=== PATIENT | male | born 1955 | race Caucasian/White ===

== ENCOUNTER 2021-04-27 20:41 | Inpatient (IN) | payer OTHER ==
[~2021-04-27 20:41] MED LIST: Iopamidol 370 76% 100 ML VIAL ONE
[2021-04-27] MEDS ORDERED: Midazolam HCl 2 mg/2 ml Vial ONE (20:53)
[2021-04-27] MEDS ORDERED: CEFAZOLIN 1 GM VIAL ONE (20:57)
[2021-04-27] MEDS ORDERED: Boostrix 0.5 ML (Tdap) VIAL ONE (20:57)
[2021-04-27 21:07] LABS: #Basophils 0.1 thou/uL (0.0-0.2); #Eosinphils 0.3 thou/uL (0.0-0.7); #Monocytes 0.7 thou/uL (0.11-0.59); #Neutrophils 5.4 thou/uL (1.40-6.50); %Basophils 0.8 % (0.0-1.0); %Eosinophils 3.4 % (0.0-10.0); %Lymphocytes 31.2 % (21.0-51.0); %Monocytes 7.4 % (0.0-10.0); %Neutrophils 57.2 % (42.0-75.0); Hemoglobin 12.5 g/dL (14.0-18.0); Mean Corpuscular HGB CONC 32.7 g/dL (32.0-36.0); Mean Corpuscular Hemoglobin 31.5 pg (27.0-31.0); Mean Corpuscular Volume 96.2 fL (78.0-98.0); Mean Platelet Volume 7.5 fL (7.4-10.4); Platelet Count 214 thou/uL (130-400); RBC Distribution Width 12.4 % (11.5-14.5); Red Blood Cell (RBC) Count 3.97 mill/uL (4.70-6.10); White Blood Cell (WBC) Count 9.5 thou/uL (4.8-10.8)
[2021-04-27 21:11] LABS: INR-International Normal Ratio 1.2; PTT 33.2 sec (22.9-36.1); Prothrombin Time 15.2 sec (12.0-14.7)
[2021-04-27 21:14] LABS: ALT (SGPT) 24 U/L (8-55); AST (SGOT) 28 U/L (5-34); Albumin 3.2 g/dL (3.4-4.8); Alkaline Phosphatase 72 U/L (40-110); Anion Gap 18 mmol/L (10-20); BUN (Urea Nitrogen) 35 mg/dL (8.4-25.7); Bilirubin, Total 0.2 mg/dL (0.2-1.2); Calc. Creatinine Clearance 0 mL/min (70-130); Calcium 7.7 mg/dL (7.8-10.44); Carbon Dioxide 16 mmol/L (23-31); Chloride 104 mmol/L (98-107); Globulin 2.9 g/dL (2.4-3.5); Protein, Total 6.1 g/dL (5.8-8.1); Sodium 135 mmol/L (136-145)
[2021-04-27] MEDS ORDERED: fentaNYL Citrate/PF 2,000 MCG in Sodium Chloride 0.9% 60 ML IV SCH (21:15)
[2021-04-27] MEDS ORDERED: manNITOL 20% 500 ML ONE (21:15)
[2021-04-27 21:17] LABS: Actual Bicarbonate (HCO3a) 19.5 mEq/L (22-28); Analyzer IN Cardio ER; Base Excess (BEa) -6.3 mEq/L (-2.0 to +3.0); Calcium, Ionized (arterial) 1.05 mmol/L (1.12-1.30); Carboxyhemoglobin (COHb) 0.2 gm% (0.0-3.0); Hemoglobin (Hb) 10.7 g/dL (14.0-18.0); O2 Tension (PaO2), arterial 219.7 mmHg (> 80.0); Potassium - ABG Lab 2.65 mmol/L (3.70-5.30); pH, Arterial 7.31 (7.35-7.45)
[2021-04-27 21:18] LABS: Puncture Site RRA
[2021-04-27 21:19] LABS: Glucose 336 mg/dL (80-115)
[2021-04-27] MEDS ORDERED: ceFAZolin 2 GM/Dextrose 50 ML 2 GM in Premix Bag 1 BAG IVPB SCH (21:30)
[2021-04-27 21:32] LABS: Phosphorus 4.6 mg/dL (2.3-4.7)
[2021-04-27 21:33] LABS: Bilirubin Negative (Negative); Blood, Urine Negative (Negative); Clarity Clear (Clear); Glucose, Urine (Dipstick) >=1000 mg/dL (Negative); Ketone, Urine Negative (Negative); Leukocyte Negative Leu/uL (Negative); Nitrite Negative (Negative); Protein, Urine (Dipstick) 20 mg/dL (Neg-Trace); Specific Gravity, Urine 1.029 (1.002-1.036); Urobilinogen Normal mg/dL (Less than 2)
[2021-04-27 21:34] LABS: Alcohol Less than 10 mg/dL (Less than 10)
[2021-04-27] MEDS ORDERED: Lidocaine 0.5%/Epinephrine 1:200,000 50 ml Vial ONE (21:37)
[2021-04-27] MEDS ORDERED: Phenylephrine 10 MG/ML VIAL ONE (21:37)
[2021-04-27] MEDS ORDERED: Thrombin 5000 UNITS/5 ML VIAL ONE (21:37)
[2021-04-27] MEDS ORDERED: Fentanyl 100 MCG/2 ML VIAL ONE (21:37)
[2021-04-27] MEDS ORDERED: Bacitracin Zinc Ointment 30 gm TUBE ONE (21:37)
[2021-04-27] MEDS ORDERED: Potassium Chloride 20 MEQ/100 ML PREMIX BAG ONE (21:40)
[2021-04-27] MEDS ORDERED: Calcium Chloride 1 GM/10 ML Abboject SYRINGE ONE (21:40)
[2021-04-27 21:41] LABS: Amphetamine Not Detected (NotDetected); Barbiturates Screen Not Detected (NotDetected); Benzodiazepine Screen Not Detected (NotDetected); Cocaine Metabolite Screen Not Detected (NotDetected); Methadone Not Detected (NotDetected); Methamphetamine Not Detected (NotDetected); Opiate Screen Not Detected (NotDetected); Oxycodone Screen Not Detected (NotDetected); Phencyclidine (PCP) Not Detected (NotDetected); THC/Cannabinoid Screen Not Detected (NotDetected); Tricyclic Screen Not Detected (NotDetected)
[2021-04-27] MEDS ORDERED: Norepinephrine 8 MG/0.9% NS 250 ML ONE (21:48)
[2021-04-27] MEDS ORDERED: Rocuronium Bromide 10 MG/ML (10ML VIAL) ONE (21:55)
[2021-04-27] MEDS ORDERED: Vecuronium 10 MG VIAL ONE (21:55)
[2021-04-27] MEDS ORDERED: hydrALAZINE 20 MG/ML VIAL SLOW IVP PRN (22:02)
[2021-04-27] MEDS ORDERED: Ondansetron PF 4 MG/2 ML Vial IVP PRN (22:02)
[2021-04-27] MEDS ORDERED: Dextrose 50% Abboject 50 ML SYRINGE SLOW IVP PRN (22:04)
[2021-04-27] MEDS ORDERED: Xylocaine 1% w/ Epi 1:100K 10 ML VIAL ONE (22:04)
[2021-04-27] MEDS ORDERED: Dextrose 5% in Water 1,000 ML IV PRN (22:04)
[2021-04-27] MEDS ORDERED: Ventilator Sedation Protocol 1 EACH FS SCH (22:15)
[2021-04-27] MEDS ORDERED: Propofol 1,000 MG/100 ML VIAL IV PRN (22:15)
[2021-04-27] MEDS ORDERED: Morphine 4 MG/ML VIAL SLOW IVP PRN (23:59)
[2021-04-27] MEDS ORDERED: Labetalol HCl 100 MG/20 ML VIAL SLOW IVP PRN (23:59)
[2021-04-28] MEDS: Norepinephrine 8 MG/0.9% NS 250 ML IVPB SCH ×2 (00:01→10:27)
[2021-04-28 00:26] LABS: Actual Bicarbonate (HCO3a) 20.3 mEq/L (22-28); CO2 Tension 38.3 mmHg (35.0-45.0); Calcium, Ionized (arterial) 1.14 mmol/L (1.12-1.30); Carboxyhemoglobin (COHb) 0.3 gm% (0.0-3.0); Hemoglobin (Hb) 10.9 g/dL (14.0-18.0); Potassium - ABG Lab 3.17 mmol/L (3.70-5.30); pH, Arterial 7.34 (7.35-7.45)
[2021-04-28 00:29] LABS: ALV-art Gradient 288.925 mmHg (0-20); Puncture Site LINE
[2021-04-28] MEDS ORDERED: Labetalol HCl 100 MG/20 ML VIAL SLOW IVP PRN (00:31)
[2021-04-28] MEDS: Sodium Chloride 0.9% 1,000 ML IV SCH ×4 (01:25→20:05)
[2021-04-28 01:39] LABS: Lactic Acid 1.1 mmol/L (0.5-2.2)
[2021-04-28] MEDS: fentaNYL Citrate/PF 2,000 MCG in Sodium Chloride 0.9% 60 ML IV SCH ×2 (02:30→21:45)
[2021-04-28] MEDS: Potassium Chloride 20 MEQ in Premix Bag 1 BAG IVPB SCH ×4 (02:30→08:21)
[2021-04-28 04:28] LABS: Lactic Acid 1.4 mmol/L (0.5-2.2)
[2021-04-28 04:38] LABS: Anion Gap 17 mmol/L (10-20); BUN (Urea Nitrogen) 32 mg/dL (8.4-25.7); Calc. Creatinine Clearance 65 mL/min (70-130); Carbon Dioxide 19 mmol/L (23-31); Chloride 106 mmol/L (98-107); Glucose 270 mg/dL (80-115); Phosphorus 3.1 mg/dL (2.3-4.7); Potassium 3.7 mmol/L (3.5-5.1); Sodium 138 mmol/L (136-145)
[2021-04-28 05:03] LABS: #Eosinphils 0.1 thou/uL (0.0-0.7); #Monocytes 1.6 thou/uL (0.11-0.59); #Neutrophils 12.5 thou/uL (1.40-6.50); %Basophils 0.1 % (0.0-1.0); %Eosinophils 0.6 % (0.0-10.0); %Lymphocytes 6.6 % (21.0-51.0); %Monocytes 10.3 % (0.0-10.0); %Neutrophils 82.3 % (42.0-75.0); Hemoglobin 10.1 g/dL (14.0-18.0); Mean Corpuscular HGB CONC 34.2 g/dL (32.0-36.0); Mean Corpuscular Volume 93.6 fL (78.0-98.0); Mean Platelet Volume 8.4 fL (7.4-10.4); Platelet Count 208 thou/uL (130-400); RBC Distribution Width 12.4 % (11.5-14.5); Red Blood Cell (RBC) Count 3.17 mill/uL (4.70-6.10); White Blood Cell (WBC) Count 15.2 thou/uL (4.8-10.8)
[2021-04-28] MEDS: Insulin Regular 300 UNITS/3 ML VIAL SC PRN ×4 (05:11→21:07)
[2021-04-28] MEDS: Acetaminophen 500 MG TAB PO SCH ×3 (05:18→12:12)
[2021-04-28] MEDS ORDERED: Sodium Chloride 0.9% 1,000 ML IV SCH (05:45)
[2021-04-28] MEDS ORDERED: Mannitol 12.5 GM/50 ML SLOW IVP SCH (06:00)
[2021-04-28 06:24] LABS: Anion Gap 17 mmol/L (10-20); BUN (Urea Nitrogen) 33 mg/dL (8.4-25.7); Calc. Creatinine Clearance 59 mL/min (70-130); Calcium 7.9 mg/dL (7.8-10.44); Carbon Dioxide 19 mmol/L (23-31); Chloride 107 mmol/L (98-107); Glucose 290 mg/dL (80-115); Potassium 3.9 mmol/L (3.5-5.1); Sodium 139 mmol/L (136-145)
[2021-04-28 07:48] LABS: Actual Bicarbonate (HCO3a) 18.4 mEq/L (22-28); Base Excess (BEa) -4.8 mEq/L (-2.0 to +3.0); CO2 Tension 28.3 mmHg (35.0-45.0); Calcium, Ionized (arterial) 1.12 mmol/L (1.12-1.30); Carboxyhemoglobin (COHb) 0.3 gm% (0.0-3.0); Hemoglobin (Hb) 10.3 g/dL (14.0-18.0); O2 Tension (PaO2), arterial 130.3 mmHg (> 80.0); Potassium - ABG Lab 3.92 mmol/L (3.70-5.30); pH, Arterial 7.43 (7.35-7.45)
[2021-04-28 07:49] LABS: ALV-art Gradient 262.125 mmHg (0-20); Puncture Site Arterial Line
[2021-04-28] MEDS: Senokot S 8.6-50 MG TAB PO SCH ×2 (08:27→20:05)
[2021-04-28] MEDS: Polyethylene Glycol 3350 17 GM Packet PO SCH (08:27)
[2021-04-28] MEDS: ceFAZolin 2 GM/Dextrose 50 ML 2 GM in Premix Bag 1 BAG IVPB SCH ×2 (08:42→17:01)
[2021-04-28] MEDS ORDERED: Lidocaine 1% (PF) 30 ML VIAL ONE (08:51)
[2021-04-28] MEDS ORDERED: Famotidine/PF 20 mg/2ml Vial SLOW IVP SCH (09:00)
[2021-04-28 11:16] LABS: Anion Gap 17 mmol/L (10-20); BUN (Urea Nitrogen) 32 mg/dL (8.4-25.7); Calc. Creatinine Clearance 65 mL/min (70-130); Calcium 7.8 mg/dL (7.8-10.44); Carbon Dioxide 17 mmol/L (23-31); Chloride 109 mmol/L (98-107); Glucose 273 mg/dL (80-115); Potassium 3.6 mmol/L (3.5-5.1); Sodium 139 mmol/L (136-145)
[2021-04-28 11:27] LABS: SARS-CoV-2 PCR by NAA DETECTED (NotDetected)
[2021-04-28 15:25] LABS: SARS-CoV-2 PCR by NAA DETECTED (NotDetected)
[2021-04-28 15:43] LABS: Actual Bicarbonate (HCO3a) 18.2 mEq/L (22-28); Base Excess (BEa) -4.7 mEq/L (-2.0 to +3.0); CO2 Tension 26.5 mmHg (35.0-45.0); Calcium, Ionized (arterial) 1.08 mmol/L (1.12-1.30); Carboxyhemoglobin (COHb) 0.3 gm% (0.0-3.0); Hemoglobin (Hb) 9.8 g/dL (14.0-18.0); O2 Tension (PaO2), arterial 83.4 mmHg (> 80.0); Potassium - ABG Lab 3.53 mmol/L (3.70-5.30); pH, Arterial 7.46 (7.35-7.45)
[2021-04-28 15:44] LABS: Puncture Site Arterial Line
[2021-04-28 15:45] LABS: ALV-art Gradient 239.975 mmHg (0-20)
[2021-04-28] MEDS ORDERED: Acetaminophen 650 MG Suppository PR PRN (15:46)
[2021-04-28] MEDS ORDERED: Calcium Chloride 13.6 MEQ in Sodium Chloride 0.9% 100 ML IVPB SCH (16:45)
[2021-04-28] MEDS: Pantoprazole 40 MG VIAL IVP SCH (20:04)
[2021-04-28] MEDS: Acetaminophen 325 MG TAB PO PRN (20:05)
[2021-04-29] MEDS: ceFAZolin 2 GM/Dextrose 50 ML 2 GM in Premix Bag 1 BAG IVPB SCH ×3 (00:14→16:27)
[2021-04-29] MEDS: Acetaminophen 325 MG TAB PO PRN (00:18)
[2021-04-29] MEDS: Insulin Regular 300 UNITS/3 ML VIAL SC PRN ×6 (00:39→20:59)
[2021-04-29 04:08] LABS: #Lymphocytes 0.7 thou/uL (1.20-3.40); #Neutrophils 12.4 thou/uL (1.40-6.50); %Basophils 0.2 % (0.0-1.0); %Eosinophils 0.1 % (0.0-10.0); %Lymphocytes 5.1 % (21.0-51.0); %Monocytes 7.3 % (0.0-10.0); %Neutrophils 87.3 % (42.0-75.0); Hemoglobin 8.3 g/dL (14.0-18.0); Mean Corpuscular Hemoglobin 32.2 pg (27.0-31.0); Mean Corpuscular Volume 94.7 fL (78.0-98.0); Mean Platelet Volume 7.8 fL (7.4-10.4); Platelet Count 195 thou/uL (130-400); RBC Distribution Width 12.7 % (11.5-14.5); Red Blood Cell (RBC) Count 2.58 mill/uL (4.70-6.10); White Blood Cell (WBC) Count 14.2 thou/uL (4.8-10.8)
[2021-04-29 04:34] LABS: Anion Gap 11 mmol/L (10-20); BUN (Urea Nitrogen) 37 mg/dL (8.4-25.7); Calc. Creatinine Clearance 57 mL/min (70-130); Calcium 8.1 mg/dL (7.8-10.44); Carbon Dioxide 22 mmol/L (23-31); Chloride 112 mmol/L (98-107); Glucose 219 mg/dL (80-115); Phosphorus 3.9 mg/dL (2.3-4.7); Potassium 3.4 mmol/L (3.5-5.1); Sodium 142 mmol/L (136-145)
[2021-04-29] MEDS: Norepinephrine 8 MG/0.9% NS 250 ML IVPB SCH (06:10)
[2021-04-29 08:15] LABS: Actual Bicarbonate (HCO3a) 20.1 mEq/L (22-28); Base Excess (BEa) -5.3 mEq/L (-2.0 to +3.0); CO2 Tension 38.7 mmHg (35.0-45.0); Calcium, Ionized (arterial) 1.17 mmol/L (1.12-1.30); Carboxyhemoglobin (COHb) 0.3 gm% (0.0-3.0); Hemoglobin (Hb) 10.3 g/dL (14.0-18.0); O2 Tension (PaO2), arterial 86.3 mmHg (> 80.0); Potassium - ABG Lab 3.51 mmol/L (3.70-5.30); pH, Arterial 7.33 (7.35-7.45)
[2021-04-29 08:21] LABS: ALV-art Gradient 221.825 mmHg (0-20); Puncture Site Arterial Line
[2021-04-29] MEDS: Pantoprazole 40 MG VIAL IVP SCH ×2 (09:02→20:51)
[2021-04-29] MEDS: Polyethylene Glycol 3350 17 GM Packet PO SCH (09:02)
[2021-04-29] MEDS: Senokot S 8.6-50 MG TAB PO SCH ×2 (09:02→20:50)
[2021-04-29] MEDS: Sodium Chloride 0.9% 1,000 ML IV SCH ×2 (09:02→13:53)
[2021-04-29] MEDS ORDERED: Sodium Chloride 0.9% 500 ML IV SCH (14:30)
[2021-04-29 21:14] VITALS: TEMP 97.2
[2021-04-30] MEDS: ceFAZolin 2 GM/Dextrose 50 ML 2 GM in Premix Bag 1 BAG IVPB SCH (01:11)
[2021-04-30] MEDS: Sodium Chloride 0.9% 1,000 ML IV SCH (05:17)
[2021-04-30] MEDS: fentaNYL Citrate/PF 2,000 MCG in Sodium Chloride 0.9% 60 ML IV SCH (05:46)
[2021-04-30] MEDS ORDERED: Midazolam HCl 2 mg/2 ml Vial ONE (06:00)
[2021-04-30] MEDS ORDERED: Morphine 4 MG/ML VIAL SLOW IVP PRN (06:13)
[2021-04-30] MEDS ORDERED: Midazolam HCl 2 mg/2 ml Vial SLOW IVP SCH (07:15)
[2021-04-30 08:24] VITALS: BP 117/47
== END 2021-04-30 10:01 | disposition hospice, inpatient (51) | DRG 955 ==
LOC: EDBD 20:41 → ERS 20:41 → SDC/OP 22:04 → CCU 23:00
PROVIDERS: ADMIT Surgery; ATTEND Surgery
PROC: 00C40ZZ Extirpation of Matter from Intracranial Subdural Space, Open Approach (ICD-10-PCS; principal; 2021-04-27)
PROC: 5A1945Z Respiratory Ventilation, 24-96 Consecutive Hours (ICD-10-PCS; 2021-04-27)
PROC: 0W9930Z Drainage of Right Pleural Cavity with Drainage Device, Percutaneous Approach (ICD-10-PCS; 2021-04-27)
PROC: 02HV33Z Insertion of Infusion Device into Superior Vena Cava, Percutaneous Approach (ICD-10-PCS; 2021-04-27)
PROC: 0D9670Z Drainage of Stomach with Drainage Device, Via Natural or Artificial Opening (ICD-10-PCS; 2021-04-27)
PROC: 3E043XZ Introduction of Vasopressor into Central Vein, Percutaneous Approach (ICD-10-PCS; 2021-04-27)
PROC: 0W9900Z Drainage of Right Pleural Cavity with Drainage Device, Open Approach (ICD-10-PCS; 2021-04-28)
PROC: 8E0ZXY6 Isolation (ICD-10-PCS; 2021-04-28)
DX: S06.5X6A Traumatic subdural hemorrhage with loss of consciousness greater than 24 hours without return to pre-existing conscious level with patient surviving, initial encounter (principal); S27.2XXA Traumatic hemopneumothorax, initial encounter; R57.8 Other shock; S06.A1XA Traumatic brain compression with herniation, initial encounter; J96.00 Acute respiratory failure, unspecified whether with hypoxia or hypercapnia; U07.1 COVID-19; S22.41XA Multiple fractures of ribs, right side, initial encounter for closed fracture; S12.000A Unspecified displaced fracture of first cervical vertebra, initial encounter for closed fracture; S12.500A Unspecified displaced fracture of sixth cervical vertebra, initial encounter for closed fracture; S22.029A Unspecified fracture of second thoracic vertebra, initial encounter for closed fracture; S22.069A Unspecified fracture of T7-T8 vertebra, initial encounter for closed fracture; N17.9 Acute kidney failure, unspecified; D62 Acute posthemorrhagic anemia; G91.8 Other hydrocephalus; J90 Pleural effusion, not elsewhere classified; Z23 Encounter for immunization; Z66 Do not resuscitate; Z51.5 Encounter for palliative care; S06.6X6A Traumatic subarachnoid hemorrhage with loss of consciousness greater than 24 hours without return to pre-existing conscious level with patient surviving, initial encounter; S06.4X6A Epidural hemorrhage with loss of consciousness greater than 24 hours without return to pre-existing conscious level with patient surviving, initial encounter; S02.11GB Other fracture of occiput, right side, initial encounter for open fracture; R40.2312 Coma scale, best motor response, none, at arrival to emergency department; R40.2112 Coma scale, eyes open, never, at arrival to emergency department; R40.2212 Coma scale, best verbal response, none, at arrival to emergency department; E87.6 Hypokalemia; I10 Essential (primary) hypertension; E11.65 Type 2 diabetes mellitus with hyperglycemia; S06.1X Traumatic cerebral edema; E83.51 Hypocalcemia; R50.9 Fever, unspecified; W17.89XA Other fall from one level to another, initial encounter; Y92.512 Supermarket, store or market as the place of occurrence of the external cause; Y99.0 Civilian activity done for income or pay; Z79.899 Other long term (current) drug therapy
CPT/HCPCS: 36415; 36416; 36600; 70450; 70498; 71045; 71260; 72125; 74018; 74177; 80048; 80053; 80306; 80307; 81003; 82533; 82805; 83605; 83735; 83930; 84100; 85025; 85610; 85730; 86850; 86900; 86901; 90715; 93005; 94003; 94640; C1713; C1789; C9113; G0390; J0690; J1815; J2001; J2250; J2370; J3010; J3480; J3490; J7030; J7050; J7620; J7799; Q9967; S0028; U0003; U0005

== ENCOUNTER 2021-04-30 10:09 | Inpatient (IN) | payer MEDICAID ==
[2021-04-30] MEDS ORDERED: Lorazepam 2 MG/ML VIAL SLOW IVP PRN ×2 (10:30→10:32)
[2021-04-30] MEDS ORDERED: Scopolamine 1.5 mg/72 hour Patch TOP PRN ×2 (10:30)
[2021-04-30] MEDS ORDERED: Acetaminophen 650 MG Suppository PR PRN (10:30)
[2021-04-30] MEDS ORDERED: Acetaminophen 325 MG TAB PO PRN (10:30)
[2021-04-30] MEDS ORDERED: Lorazepam 1 MG TAB PO PRN (10:30)
[2021-04-30] MEDS ORDERED: Hyoscyamine Sulfate SL 0.125 mg Tablet SL PRN (10:30)
[2021-04-30] MEDS ORDERED: Haloperidol Lactate 5 MG/ML VIAL SLOW IVP PRN (10:30)
[2021-04-30] MEDS ORDERED: Morphine 10 MG/0.5 ML ORAL SYRINGE SL PRN (10:30)
[2021-04-30] MEDS ORDERED: chlorproMAZINE HCl 50 MG/2 ML AMP IM PRN (10:30)
[2021-04-30] MEDS: Morphine 4 MG/ML VIAL SLOW IVP PRN ×2 (10:36→11:00)
== END 2021-04-30 11:11 | disposition expired | DRG 951 ==
LOC: CCU 10:09
PROVIDERS: ADMIT Family Medicine; ATTEND Family Medicine
DX: Z51.5 Encounter for palliative care (principal); S06.5X9A Traumatic subdural hemorrhage with loss of consciousness of unspecified duration, initial encounter; S06.6X9A Traumatic subarachnoid hemorrhage with loss of consciousness of unspecified duration, initial encounter; R40.2312 Coma scale, best motor response, none, at arrival to emergency department; R40.2112 Coma scale, eyes open, never, at arrival to emergency department; R40.2212 Coma scale, best verbal response, none, at arrival to emergency department; S12.000A Unspecified displaced fracture of first cervical vertebra, initial encounter for closed fracture; S22.029A Unspecified fracture of second thoracic vertebra, initial encounter for closed fracture; S22.069A Unspecified fracture of T7-T8 vertebra, initial encounter for closed fracture; S06.389A Contusion, laceration, and hemorrhage of brainstem with loss of consciousness of unspecified duration, initial encounter; S02.91XA Unspecified fracture of skull, initial encounter for closed fracture; S12.500A Unspecified displaced fracture of sixth cervical vertebra, initial encounter for closed fracture; W17.89XA Other fall from one level to another, initial encounter
CPT/HCPCS: J2060; J2270